=== PATIENT | male | born 1985 | race African-American/Black ===

== ENCOUNTER 2022-04-05 21:04 | Emergency (ER) | payer OTHER ==
[2022-04-05 21:12] VITALS: BP 108/71; PULSE 75; RESP 16; TEMP 98.1
[2022-04-05] MEDS ORDERED: predniSONE 20 MG TABLET (UD) PO ONE (22:42)
[2022-04-05] MEDS ORDERED: diphenhydrAMINE HCL 50 MG CAPSULE PO ONE (22:42)
[2022-04-05] MEDS ORDERED: predniSONE 20 MG TABLET (UD) ONE (22:48)
[2022-04-05] MEDS ORDERED: diphenhydrAMINE HCL 25 MG CAPSULE (FP) PO ONE (22:48)
== END 2022-04-05 23:01 | disposition home or self-care (01) ==
LOC: JERFT 21:04 → JER 21:04
DX: R21 Rash and other nonspecific skin eruption (principal)
CPT/HCPCS: 99283-25